=== PATIENT | male | born 1990 | race Caucasian/White ===

== ENCOUNTER 2016-10-27 04:02 | Emergency (ER) | payer MEDICAID ==
[2016-10-27 04:09] VITALS: BP 125/74; PULSE 81; RESP 14; TEMP 97.9; O2SAT 96
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
== END 2016-10-27 04:15 | disposition home or self-care (01) ==
LOC: EDUNIT#
DX: S00.83XA Contusion of other part of head, initial encounter (principal); F10.129 Alcohol abuse with intoxication, unspecified; F17.200 Nicotine dependence, unspecified, uncomplicated; V19.9XXA Pedal cyclist (driver) (passenger) injured in unspecified traffic accident, initial encounter; Y92.410 Unspecified street and highway as the place of occurrence of the external cause; Y93.89 Activity, other specified

== ENCOUNTER 2017-02-01 13:25 | Emergency (ER) | payer MEDICAID ==
[2017-02-01 13:53] VITALS: TEMP 98.4
--- NOTE | 2017-02-01 14:45 | EDPHY ---
H & P Smoking Status: Current some day smoker Time Seen by Provider: 02/01/17 14:17 HPI/ROS: CHIEF COMPLAINT: Alcohol withdrawal, anxiety HISTORY OF PRESENT ILLNESS: 26-year-old male presents to the emergency department with alcohol withdrawal and feeling extremely anxious. The patient states that typically drinks daily and has been in a treatment program for the last 1 week. He last drank alcohol over 1 week ago. He he [facility] and started on Librium. He has been taking Librium as prescribed and ran out yesterday. They would not give him any more Librium. He feels extremely anxious. He has taking benzodiazepines including Klonopin , Ativan, Xanax, in the past. Currently he denies pain in his chest or difficulty breathing. Denies abdominal pain. Denies headache. Denies any reported trauma. Denies any other substance abuse. The patient does want to become sober. REVIEW OF SYSTEMS: Constitutional: No fever, no chills. Eyes: No double or blurry vision. ENT: No sore throat. Respiratory: No cough, no shortness of breath. Cardiac: No chest pain. Gastrointestinal: No abdominal pain, vomiting or diarrhea. Genitourinary: No dysuria. Musculoskeletal: No neck or back pain. Skin: No rashes. Neurological: No headache. (ZoëMilka dye) Past Medical/Surgical History: Alcoholism, anxiety (MaryseMilka M) Social History: Single (Milka Serra) Physical Exam: General Appearance: Alert, no distress. Anxious, 116/97, initial respiratory rate was 22, 96% on room air. Eyes: Pupils equal and round. Extraocular motions are all intact. ENT: Mouth: Mucous membranes moist. Respiratory: No wheezing, rhonchi, or rales, lungs are clear to auscultation. Cardiovascular: Regular rate and rhythm. Gastrointestinal: Abdomen is soft and nontender, no masses, no rebound or guarding, bowel sounds normal. Neurological: Alert and oriented x 3, cranial nerves II through XII grossly intact Skin: Warm and dry, no rashes. Musculoskeletal: Nontender to palpate along the cervical, thoracic or lumbar spine. Neck is supple. Extremities: Full range of motion and no peripheral edema. Psychiatric: Patient is oriented X 3, there is no agitation. (ZoëMilka dye M) Constitutional: Initial Vital Signs Temperature (C) 36.9 C 02/01/17 13:51 Heart Rate 99 02/01/17 13:51 Respiratory Rate 22 H 02/01/17 13:51 Blood Pressure 116/97 H 02/01/17 13:51 O2 Sat (%) 96 02/01/17 13:51 O2 Delivery Mode Room Air Allergies/Adverse Reactions: No Known Allergies Allergy (Verified 02/01/17 13:51) Home Medications: Medication Instructions Recorded clonAZEPAM [Klonopin] 1 mg PO BID PRN #10 tab.rapdis 02/01/17 Medical Decision Making ED Course/Re-evaluation: 26-year-old male presents to the emergency department feeling extremely anxious. He is requesting Klonopin. He has taken this medication in the past. He has not drank alcohol in over 1 week. Was discouraged from drinking alcohol while taking this medication. He verbalized understanding and agreed. The patient was given a prescription for Klonopin 1 mg tablets #10. He was given information for primary care provider as well as [facility]. (Milka Serra) Differential Diagnosis: Including but not limited to anxiety, acute alcohol withdrawal, dehydration, electrolyte abnormality (Milka Serra) Other Provider: The patient was evaluated and managed by the physician transportation assistant. I have reviewed this chart and I agree with the findings and plan of care as documented , as indicated by my signature. I am the secondary supervising physician. ( Carmen Bobby) Departure - Departure Disposition: Home, Routine, Self-Care Clinical Impression: Anxiety Alcohol withdrawal Qualifiers: Complication of substance-induced condition: uncomplicated Qualified Code(s): F10.230 - Alcohol dependence with withdrawal, uncomplicated Condition: Good Instructions: Alcohol Withdrawal (ED), Anxiety (ED) Additional Instructions: Clonazepam as directed for symptoms of anxiety. You should not drink alcohol while taking this medication. You should follow up at the [facility]iction recovery [facility]. Return to the emergency department if you developed recurring symptoms of anxiety, alcohol withdrawal, or if you feel worse in any way. 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 anxiety
[2017-02-01 17:23] VITALS: BP 133/74; PULSE 94; RESP 18; O2SAT 95
== END 2017-02-01 16:00 | disposition home or self-care (01) ==
DX: F41.9 Anxiety disorder, unspecified (principal); F10.230 Alcohol dependence with withdrawal, uncomplicated; F17.200 Nicotine dependence, unspecified, uncomplicated

== ENCOUNTER 2017-07-23 15:41 | Emergency (ER) | payer MEDICAID ==
[2017-07-23 15:48] VITALS: BP 139/89; PULSE 95; RESP 16; TEMP 98.2; O2SAT 97
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
--- NOTE | 2017-07-23 18:55 | ASDISCHSUM ---
Discharge Information Plan Status:Homeless/Residential Medically Cleared to Leave: Discharge Date:07/23/2017 05:35 PM CM D/C Disposition:Streets (Homeless) ADT D/C Disposition:Home, Routine, Self-Care Projected Discharge Date:07/23/2017 05:35 PM Transportation at D/C:None or Unknown Discharge Delay Reason: Follow-Up Date:07/23/2017 05:35 PM Discharge Slot: Final Diagnosis: Placement Information Patient Contact Information Contact Name:PORTIA Relationship:Mother Address:[address] City:[place] Alternate Phone: [facility]/Zip Code:[place] [address] Email: Financial Information Financial Class: Primary Plan 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 Emergency dept visits in Answers: 4+ last 6 months Score: 4 Date Signed: 07/23/2017 06:53 PM Electronically Signed By:Christa Rapp RN Intervention Information
== END 2017-07-23 17:35 | disposition home or self-care (01) ==
LOC: EDUNIT#
DX: F10.920 Alcohol use, unspecified with intoxication, uncomplicated (principal); F17.200 Nicotine dependence, unspecified, uncomplicated

== ENCOUNTER 2017-07-25 14:58 | Emergency (ER) | payer MEDICAID ==
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
[2017-07-25 15:14] VITALS: BP 119/97; PULSE 100; RESP 16; TEMP 98.2; O2SAT 97
== END 2017-07-25 15:10 ==
LOC: EDUNIT#
DX: T59.3X1A Toxic effect of lacrimogenic gas, accidental (unintentional), initial encounter (principal); F17.200 Nicotine dependence, unspecified, uncomplicated